=== PATIENT | male | born 1975 ===

== ENCOUNTER 2017-05-19 10:24 | Emergency (ER) | payer SELFPAY ==
[~2017-05-19] VITALS: Ht 177.8 cm; Wt 135.5 kg
[2017-05-19 10:26] VITALS: Ht 177.8 cm; Wt 135.5 kg
[2017-05-19] MEDS ORDERED: SODI30SP2 NS (11:56)
--- NOTE | 2017-05-19 14:26 | ERD ---
ER Documentation Chief Complaint Chief Complaint BLOODY NOSE THAT WONT STOP SINCE THIS AM HPI This is a 42-year-old male presenting to emergency department for epistaxis. Patient states he began having bright red bleeding from left nostril this morning. Patient states that he was placing Kleenex up left nostril and bleeding eventually stopped. Patient denies any blood clots. No fevers or chills. No cough, shortness of breath or difficulty breathing. No rash. No facial swelling. No recent trauma or injury to face or head. ROS All systems reviewed and are negative except as per history of present illness. 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 Neck: Full range of motion..~ No meningismus. Resp: Clear to auscultation bilaterally. No wheezing, rhonchi or crackles. No stridor or labored breathing. Cardio: Regular rate and rhythm, no murmurs Abd: Soft, non tender, non distended. Normal bowel sounds Skin: No petechiae or rashes Back: No midline or flank tenderness Ext: No cyanosis, or edema Neur: Awake and alert Psych: Normal Mood and Affect Procedures/MDM MDM: 42-year-old male presenting to emergency department for epistaxis. No active bleeding at this time. Physical exam is overall unremarkable. Patient is afebrile vital signs are stable. No difficulty breathing or shortness of breath. No facial swelling. No rash. Diagnosis is epistaxis. Patient is appropriate for outpatient management and will be given nose clamp for prevention of heavy bleeding if patient starts to have epistaxis at home. Return to ED for any high fever, chest pain, difficulty breathing, shortness breath, wheezing, vomiting, diarrhea, abdominal pain or any new or worsening symptoms. Patient verbalizes understanding. All questions answered at discharge. Disclaimer: Inadvertent spelling and grammatical errors are likely due to EHR/ dictation software use and do not reflect on the overall quality of patient care. Also, please note that the electronic time recorded on this note does not necessarily reflect the actual time of the patient encounter. Departure Diagnosis: Primary Impression: Epistaxis Condition: Stable Patient Instructions: Epistaxis (Adult) Referrals: JOELLE REDMAN MD,HUSAM Leslie MD [facility] YOU HAVE RECEIVED A MEDICAL SCREENING EXAM AND THE RESULTS INDICATE THAT YOU DO NOT HAVE A CONDITION THAT REQUIRES URGENT TREATMENT IN THE EMERGENCY DEPARTMENT. FURTHER EVALUATION AND TREATMENT OF YOUR CONDITION CAN WAIT UNTIL YOU ARE SEEN IN YOUR DOCTORS OFFICE WITHIN THE NEXT 1-2 DAYS. IT IS YOUR RESPONSIBILITY TO MAKE AN APPOINTMENT FOR FOLOW-UP CARE. IF YOU HAVE A PRIMARY DOCTOR --you should call your primary doctor and schedule an appointment IF YOU DO NOT HAVE A PRIMARY DOCTOR YOU CAN CALL OUR PHYSICIAN REFERRAL HOTLINE AT IF YOU CAN NOT AFFORD TO SEE A PHYSICIAN YOU CAN CHOSE FROM THE FOLLOWING [facility] [address] [facility] [address] [facility]. [facility] [address] [facility] [facility] [address] [facility] [facility] [address] [facility] [address] [facility]. [facility]. [address] [facility] YOU HAVE RECEIVED A MEDICAL SCREENING EXAM AND THE RESULTS INDICATE THAT YOU DO NOT HAVE A CONDITION THAT REQUIRES URGENT TREATMENT IN THE EMERGENCY DEPARTMENT. FURTHER EVALUATION AND TREATMENT OF YOUR CONDITION CAN WAIT UNTIL YOU ARE SEEN IN YOUR DOCTORS OFFICE WITHIN THE NEXT 1-2 DAYS. IT IS YOUR RESPONSIBILITY TO MAKE AN APPOINTMENT FOR FOLOW-UP CARE. IF YOU HAVE A PRIMARY DOCTOR --you should call your primary doctor and schedule and appointment IF YOU DO NOT HAVE A PRIMARY DOCTOR YOU CAN CALL OUR PHYSICIAN REFERRAL HOTLINE AT . IF YOU CAN NOT AFFORD TO SEE A PHYSICIAN YOU CAN CHOSE FROM THE FOLLOWING [facility] INSTITUTIONS: [facility] [address] [place] [address] [facility] [address] [place] [address] [facility] [address] [place] [address] Additional Instructions: Call your primary care doctor TOMORROW for an appointment during the next 2-3 days.See the doctor sooner or return here if your condition worsens before your appointment time. Return to ED for any high fever, chest pain, difficulty breathing, shortness breath, wheezing, vomiting, diarrhea, abdominal pain or any new or worsening symptoms. GLORIA ZAVALA NP May 19, 2017 14:26
== END 2017-05-19 12:14 | disposition home or self-care (01) ==
LOC: FTE 10:24
DX: R04.0 Epistaxis (principal)
CPT/HCPCS: 99283